=== PATIENT | male | born 1975 | race Caucasian/White ===

== ENCOUNTER 2020-09-08 21:47 | Outpatient (CLI) | payer OTHER, SELFPAY ==
--- NOTE | 2020-09-08 14:26 | DI.RAD_ITS ---
Exam(s) XR FOOT LT COMPLETE EXAM: XR FOOT LT COMPLETE CLINICAL HISTORY: LEFT FOOT PAIN M79.672 TYPE 2 DIABETES W POLYNEUROPATHY E11.42 TRANSMETATAR TECHNIQUE: COMPARISON: No exams were available for comparison FINDINGS: Three views were obtained. There is prior transmetatarsal amputation. No gross erosive or destructi ve process as visualized. IMPRESSION: RADIATION DOSE DELIVERED: Total DLP
== END 2020-09-08 22:07 ==
PROVIDERS: Visit Provider Podiatrist
DX: M79.672 Pain in left foot (principal); E11.42 Type 2 diabetes mellitus with diabetic polyneuropathy
CPT/HCPCS: 73630

== ENCOUNTER 2020-12-09 03:33 | Outpatient (CLI) | payer OTHER, SELFPAY ==
[2020-12-09 11:25] LABS: Hemoglobin A1C 10.4 % (<5.7)
[2020-12-09 11:49] LABS: ALT 54 U/L (16-63); AST 24 U/L (15-37); Albumin 3.9 g/dL (3.4-5.0); Alkaline Phosphatase 109 U/L (46-116); Anion Gap 5.4 mmol/L (3-11); BUN 12 mg/dL (7-18); Bilirubin, Total 0.7 mg/dL (0.2-1.0); CO2 29.6 mmol/L (21.0-32.0); Calcium 8.6 mg/dL (8.5-10.1); Chloride 102 mmol/L (98-107); Glucose 293 mg/dL (74-106); Potassium 3.9 mmol/L (3.5-5.1); Sodium 137 mmol/L (136-145); Total Protein 6.9 g/dL (6.4-8.2)
== END 2020-12-09 03:34 | disposition home or self-care (01) ==
LOC: LBO 03:33
PROVIDERS: PCP Nurse Practitioner Acute Care; Visit Provider Nurse Practitioner Acute Care
DX: E11.9 Type 2 diabetes mellitus without complications (principal)
CPT/HCPCS: 36415; 80053; 83036

== ENCOUNTER 2021-09-10 02:58 | Outpatient (CLI) | payer OTHER, SELFPAY ==
[2021-09-10 08:23] LABS: Hemoglobin A1C 6.6 % (<5.7)
[2021-09-10 09:20] LABS: Calculated LDL 55 mg/dL (<100); Cholesterol 121 mg/dL (<200); HDL Cholesterol 34 mg/dL (40-60); Triglyceride 160 mg/dL (<150)
== END 2021-09-10 02:59 | disposition home or self-care (01) ==
LOC: LBO 02:58
PROVIDERS: PCP Nurse Practitioner Acute Care; Visit Provider Nurse Practitioner Acute Care
DX: Z13.220 Encounter for screening for lipoid disorders (principal); E11.9 Type 2 diabetes mellitus without complications
CPT/HCPCS: 36415; 80061; 83036

== ENCOUNTER 2021-11-08 03:31 | Outpatient (CLI) | payer OTHER, SELFPAY ==
[2021-11-08 07:51] LABS: Hemoglobin A1C 5.8 % (<5.7)
[2021-11-08 08:30] LABS: ALT 51 U/L (16-63); AST 21 U/L (15-37); Albumin 3.9 g/dL (3.4-5.0); Alkaline Phosphatase 83 U/L (46-116); Anion Gap 7.6 mmol/L (3-11); BUN 17 mg/dL (7-18); Bilirubin, Total 0.5 mg/dL (0.2-1.0); CO2 31.4 mmol/L (21.0-32.0); CREATININE 1.2 mg/dL (0.70-1.30); Calcium 8.5 mg/dL (8.5-10.1); Chloride 104 mmol/L (98-107); Glucose 140 mg/dL (74-106); Potassium 4.1 mmol/L (3.5-5.1); Sodium 143 mmol/L (136-145); Total Protein 7.4 g/dL (6.4-8.2); Vitamin B12 387 pg/mL (193-986)
[2021-11-08 08:36] LABS: COMMENT (LAB VIEW ONLY) 210.42 mg/dL; Microalb ug/mg Crea 2.5 ug/mg Cr
[2021-11-09 17:06] LABS: Fructosamine 211 mcmol/L (200 - 285)
== END 2021-11-08 03:32 | disposition home or self-care (01) ==
LOC: LBO 03:31
PROVIDERS: PCP Nurse Practitioner Acute Care; Visit Provider Nurse Practitioner Acute Care
DX: E11.65 Type 2 diabetes mellitus with hyperglycemia
CPT/HCPCS: 36415; 80053; 82043; 82570; 82607; 82985; 83036

== ENCOUNTER 2021-12-17 01:10 | Outpatient (CLI) | payer OTHER, SELFPAY ==
[2021-12-17 08:56] LABS: Vitamin B12 432 pg/mL (193-986)
[2021-12-17 18:11] LABS: Albumin, Ur < 0.6 mg/dL (See Note); Creatinine, Ur 112.7 mg/dL (See Note)
[2021-12-18 15:55] LABS: Fructosamine 219 mcmol/L (200 - 285)
== END 2021-12-17 01:11 | disposition home or self-care (01) ==
LOC: LBO 01:10
PROVIDERS: PCP Nurse Practitioner Acute Care; Visit Provider Nurse Practitioner Acute Care
DX: E11.65 Type 2 diabetes mellitus with hyperglycemia (principal); R53.83 Other fatigue
CPT/HCPCS: 36415; 82043; 82570; 82607; 82985

== ENCOUNTER 2022-03-22 03:13 | Outpatient (CLI) | payer OTHER, SELFPAY ==
[2022-03-22 15:38] LABS: Hemoglobin A1C 5.8 % (<5.7)
[2022-03-22 15:48] LABS: Microalb ug/mg Crea 1.7 ug/mg Cr
[2022-03-22 16:22] LABS: Calculated LDL 45 mg/dL (<100); Cholesterol 120 mg/dL (<200); HDL Cholesterol 39 mg/dL (40-60); Triglyceride 182 mg/dL (<150); Vitamin B12 489 pg/mL (193-986)
== END 2022-03-22 03:14 | disposition home or self-care (01) ==
LOC: LBO 03:13
PROVIDERS: PCP Nurse Practitioner Acute Care; Visit Provider Nurse Practitioner Acute Care
DX: E11.9 Type 2 diabetes mellitus without complications (principal); R53.83 Other fatigue
CPT/HCPCS: 36415; 80061; 82043; 82570; 82607; 83036

== ENCOUNTER 2022-05-10 03:19 | Outpatient (CLI) | payer OTHER, SELFPAY ==
[2022-05-10 13:10] LABS: Hemoglobin A1C 5.2 % (<5.7)
[2022-05-10 13:56] LABS: COMMENT (LAB VIEW ONLY) 352.69 mg/dL; Microalb ug/mg Crea 4.7 ug/mg Cr
[2022-05-10 14:26] LABS: Calculated LDL 45 mg/dL (<100); Cholesterol 106 mg/dL (<200); HDL Cholesterol 38 mg/dL (40-60); Triglyceride 118 mg/dL (<150); Vitamin B12 450 pg/mL (193-986)
== END 2022-05-10 03:20 | disposition home or self-care (01) ==
LOC: LBO 03:19
PROVIDERS: PCP Nurse Practitioner Acute Care; Visit Provider Nurse Practitioner Acute Care
DX: E11.9 Type 2 diabetes mellitus without complications (principal); R53.83 Other fatigue
CPT/HCPCS: 36415; 80061; 82043; 82570; 82607; 83036

== ENCOUNTER 2022-07-08 08:39 | Emergency (ER) | payer OTHER, SELFPAY ==
[2022-07-08] VITALS (123 sets, daily range): BP systolic 113–126; BP diastolic 67–84; PULSE 78–91; RESP 9–28; TEMP 36.5; O2SAT 90–100
--- NOTE | 2022-07-08 08:30 | RT.EKG_ITS ---
APPROVED REPORT Exam: Resting ECG Reason for Exam: Dyspnea Patient Location: E HR:90 bpm ECG Measurements Heart Rate 90 AXIS PA 158 P -2 QRSd 85 QRS 12 QT 359 T 30 QTc 439 Conclusion Sinus rhythm...normal P axis, V-rate 60- 99
--- NOTE | 2022-07-08 09:00 | DI.RAD_ITS ---
Exam(s) XR CHEST 2V PA LATERAL EXAM: XR CHEST 2V PA LATERAL CLINICAL HISTORY: chest congestion, sob TECHNIQUE: 2D digital imaging was performed of the chest. Two images were obtained. PA and lateral views were obtained. COMPARISON: No exams were available for comparison FINDINGS: MEDIASTINUM: Normal. HEART: Normal. PULMONARY VASCULATURE: Normal. LUNGS: Clear. PLEURAL SPACE: No pleural effusion or pneumothorax. BONE:Within normal limits for the patient's age. OTHER FINDINGS:Normal. IMPRESSION: No acute pulmonary findings. DATA REPOSITORY: RADIATION DOSE DELIVERED:
[2022-07-08 09:13] LABS: Abs Immature Grans 0.04 10^3/uL (0.0-0.06); Absolute Basophil Count 0.03 10^3/uL (0.0-0.2); Absolute Lymphocyte Count 2.16 10^3/uL (1.2-3.4); Absolute Monocyte Count 0.54 10^3/uL (0.1-0.8); Basophils % 0.2; Eosinophils % 2.4; HCT 41.3 % (40.0-50.0); HGB 15.5 g/dL (13.5-17.5); Immature Grans % 0.3; Lymphocytes % 17.3; MCHC 37.5 % (32.0-36.0); MCV 85 fL (80-95); MPV 9.8 fL (8.0-11.0); Monocytes % 4.3; Neutrophils % 75.5; Platelet Count 197 10^3/uL (130-400); RBC 4.85 10^6/uL (4.36-5.78); RDW 14.4 % (11.8-14.1); RDW-SD 40.4 fL; WBC 12.51 10^3/uL (4.4-10.8)
[2022-07-08 09:15] LABS: Absolute Neutrophil Count 9.45 10^3/uL (1.2-6.7)
[2022-07-08] MEDS: Lactated Ringers 500 ML 1000 ML IV (09:15)
[2022-07-08 09:32] LABS: ALT 31 U/L (16-63); AST 15 U/L (15-37); Alkaline Phosphatase 94 U/L (46-116); Anion Gap 10.1 mmol/L (3-11); BUN 13 mg/dL (7-18); Bilirubin, Total 1.3 mg/dL (0.2-1.0); CO2 26.9 mmol/L (21.0-32.0); CREATININE 1.4 mg/dL (0.70-1.30); Calcium 9.3 mg/dL (8.5-10.1); Chloride 100 mmol/L (98-107); Estimated GFR 63.56 (mL/min/1.73m2); Glucose 142 mg/dL (74-106); Magnesium 2.2 mg/dL (1.8-2.4); Potassium 3.6 mmol/L (3.5-5.1); Sodium 137 mmol/L (136-145); Total Protein 8.5 g/dL (6.4-8.2)
[2022-07-08 09:35] LABS: Troponin I < 50 ng/L (<or=60)
[2022-07-08 09:59] LABS: COVID-19 PCR Negative (Negative); Influenza A PCR Negative (Negative); Influenza B PCR Negative (Negative); RSV PCR Negative (Negative)
[2022-07-08 10:00] LABS: Source Nasopharynx
[2022-07-08 10:21] LABS: D-Dimer 521 ng/mlFEU (<500)
[2022-07-08 10:34] LABS: NT-proBNP 17 pg/mL (<300); TSH (W/Ref FT4) 1.46 uIU/mL (0.36-3.74)
--- NOTE | 2022-07-08 10:54 | ED.GENADUL_ITS ---
Discharge Plan Disposition Patient Disposition: Home Condition: Stable Discharge Details Clinical Impression: Pneumonia, Elevated bilirubin Primary Care Provider: Pedro Luis Lawrence ED Provider: Lamin Max Home Meds and New Rx's Prescriptions: New doxycycline hyclate 100 mg tablet 100 mg PO BID Qty: 13 0RF amoxicillin-pot clavulanate 875-125 mg tablet 1 tab PO BID Qty: 13 0RF Continued omeprazole 20 mg capsule,delayed release(DR/EC) 20 mg PO DAILY lisinopril 10 mg tablet 10 mg PO DAILY metformin 500 mg tablet 500 mg PO BID Trulicity 0.75 mg/0.5 mL pen injector 0.75 mg subcut QWEEK gabapentin 300 mg capsule 300 mg PO TID simvastatin 20 mg tablet 20 mg PO DAILY buspirone 10 mg tablet 10 mg PO DAILY paroxetine HCl 40 mg tablet 40 mg PO DAILY Mounjaro 15 mg/0.5 mL pen injector 15 mg SUBCUT QWEEK Discharge Instructions Instructions: Pneumonia (ED) Additional Instructions: Please drink plenty of fluids to stay hydrated. Please take full course of antibiotic as prescribed. You were given initial dose here in the [facility]. Take another dose as prescribed late tonight. Please contact your primary care physician to arrange follow-up. Return to the ER immediately for any worsening or new concerning symptoms. Stand Alone Forms: Work Release Referrals: Pedro Luis Lawrence [Primary Care Provider] - Medical Decision Making 1154 -- 46-year-old male here with flulike illness over the past few days, generally weak with dyspnea on exertion and arthralgias today. No signs of focal bacterial infection on exam. Lungs clear to auscultation. Abdominal exam benign. Screening EKG was reviewed and interpreted by me: Please see report, nondiagnostic, sinus rhythm 90 bpm, normal axis. Troponin negative. I did consider CHF and BNP is negative. Initial labs reviewed: Bilirubin slightly elevated at 1.3. Leukocytosis of 12.5 noted. COVID and flu negative. D-dimer is elevated. Plan to proceed to CT of the chest to assess for acute pulmonary embolism. 1305 --CT of the chest was interpreted by radiology:1. No evidence of pulmonary embolism, thoracic aortic dissection or aneurysm.? 2. Bilateral basilar infiltrates suspicious for pneumonia. 3. Findings were discussed with Dr. Max on 07/08/2022 at 12:20 p.m.. Troponin negative. Patient reassessed and feeling better, nursing notes much improved after IV fluid. Plan to initiate antibiotic coverage with Augmentin and doxycycline. Plan for outpatient follow-up with PCP. Usual and customary discharge instructions reviewed with the patient Lab Data Lab results reviewed: Yes I reviewed the patient's lab results. Labs: Laboratory Tests Range/Units 07/08/22 07/08/22 07/08/22 08:55 08:55 08:55 WBC (4.4-10.8) 10^3/uL 12.51 H RBC (4.36-5.78) 10^6/uL 4.85 Hgb (13.5-17.5) g/dL 15.5 Hct (40.0-50.0) % 41.3 MCV (80-95) fL 85 MCH (27.0-33.0) pg 32.0 MCHC (32.0-36.0) % 37.5 H RDW (11.8-14.1) % 14.4 H Plt Count (130-400) 10^3/uL 197 MPV (8.0-11.0) fL 9.8 Immature Gran % 0.3 Neutrophils % 75.5 Lymphocytes % 17.3 Monocytes % 4.3 Eosinophils % 2.4 Basophils % 0.2 Nucleated RBC % (0.0-0.3) % 0.0 Absolute Neutrophils (1.2-6.7) 10^3/uL 9.45 H Absolute Lymphocytes (1.2-3.4) 10^3/uL 2.16 Absolute Monocytes (0.1-0.8) 10^3/uL 0.54 Absolute Eosinophils (0.0-0.7) 10^3/uL 0.30 Absolute Basophils (0.0-0.2) 10^3/uL 0.03 D-Dimer (<500) ng/mlFEU Sodium (136-145) mmol/L 137 Potassium (3.5-5.1) mmol/L 3.6 Chloride (98-107) mmol/L 100 Carbon Dioxide (21.0-32.0) mmol/L 26.9 Anion Gap (3-11) mmol/L 10.1 BUN (7-18) mg/dL 13 Creatinine (0.70-1.30) mg/dL 1.4 H Est GFR (CKD-EPI 2021) (mL/min/1.73m2) 63.56 Glucose (74-106) mg/dL 142 H Calcium (8.5-10.1) mg/dL 9.3 Magnesium (1.8-2.4) mg/dL 2.2 Total Bilirubin (0.2-1.0) mg/dL 1.3 H AST (15-37) U/L 15 ALT (16-63) U/L 31 Alkaline Phosphatase (46-116) U/L 94 Troponin I (<or=60) ng/L < 50 NT-Pro-B Natriuret Pep (<300) pg/mL 17 Total Protein (6.4-8.2) g/dL 8.5 H Albumin (3.4-5.0) g/dL 4.0 TSH (0.36-3.74) uIU/mL 1.46 COVID-19 Source SARS-CoV-2 (PCR) (Negative) Influenza Type A (PCR) (Negative) Influenza Type B (PCR) (Negative) RSV (PCR) (Negative) Range/Units 07/08/22 07/08/22 07/08/22 08:55 09:06 12:24 WBC (4.4-10.8) 10^3/uL RBC (4.36-5.78) 10^6/uL Hgb (13.5-17.5) g/dL Hct (40.0-50.0) % MCV (80-95) fL MCH (27.0-33.0) pg MCHC (32.0-36.0) % RDW (11.8-14.1) % Plt Count (130-400) 10^3/uL MPV (8.0-11.0) fL Immature Gran % Neutrophils % Lymphocytes % Monocytes % Eosinophils % Basophils % Nucleated RBC % (0.0-0.3) % Absolute Neutrophils (1.2-6.7) 10^3/uL Absolute Lymphocytes (1.2-3.4) 10^3/uL Absolute Monocytes (0.1-0.8) 10^3/uL Absolute Eosinophils (0.0-0.7) 10^3/uL Absolute Basophils (0.0-0.2) 10^3/uL D-Dimer (<500) ng/mlFEU 521 H Sodium (136-145) mmol/L Potassium (3.5-5.1) mmol/L Chloride (98-107) mmol/L Carbon Dioxide (21.0-32.0) mmol/L Anion Gap (3-11) mmol/L BUN (7-18) mg/dL Creatinine (0.70-1.30) mg/dL Est GFR (CKD-EPI 2020) (mL/min/1.73m2) Glucose (74-106) mg/dL Calcium (8.5-10.1) mg/dL Magnesium (1.8-2.4) mg/dL Total Bilirubin (0.2-1.0) mg/dL AST (15-37) U/L ALT (16-63) U/L Alkaline Phosphatase (46-116) U/L Troponin I (<or=60) ng/L < 50 NT-Pro-B Natriuret Pep (<300) pg/mL Total Protein (6.4-8.2) g/dL Albumin (3.4-5.0) g/dL TSH (0.36-3.74) uIU/mL COVID-19 Source Nasopharynx SARS-CoV-2 (PCR) (Negative) Negative Influenza Type A (PCR) (Negative) Negative Influenza Type B (PCR) (Negative) Negative RSV (PCR) (Negative) Negative HPI General Mode of arrival: ambulatory . Date/Time Provider Initiated Documentation: 07/08/22 09:01 . Limitations to Documentation: no limitations . Information obtained by: patient . HPI Narrative: 46-year-old male with history of diabetes, presents with chief complaint of generally not feeling well. Patient notes he has been having flulike illness for the past 2 to 3 days. He notes he feels rundown. He has had mild interm ittent cough. Patient notes dyspnea on exertion today and arthralgias. No fever. No known tick bites. Patient has performed home COVID testing has been negative this week. Related Data Home Medications Medication Instructions Recorded Confirmed dulaglutide 0.75 mg/0.5 mL 0.75 mg subcut QWEEK 02/25/22 05/10/22 [facility] gabapentin 300 mg capsule 300 mg PO TID 02/25/22 07/08/22 lisinopril 10 mg tablet 10 mg PO DAILY 02/25/22 07/08/22 metformin 500 mg tablet 500 mg PO BID 02/25/22 07/08/22 omeprazole 20 mg capsule,delayed 20 mg PO DAILY 02/25/22 07/08/22 release simvastatin 20 mg tablet 20 mg PO DAILY 02/25/22 07/08/22 amoxicillin 875 mg-potassium 1 tab PO BID #13 tabs 07/08/22 clavulanate 125 mg tablet buspirone 10 mg tablet 10 mg PO DAILY 07/08/22 07/08/22 doxycycline hyclate 100 mg tablet 100 mg PO BID #13 tabs 07/08/22 paroxetine HCl 40 mg tablet 40 mg PO DAILY 07/08/22 07/08/22 tirzepatide 15 mg/0.5 mL 15 mg subcut QWEEK 07/08/22 07/08/22 subcutaneous pen injector (Dania) Previous Rx's Medication Instructions Recorded amoxicillin 875 mg-potassium 1 tab PO BID #13 tabs 07/08/22 clavulanate 125 mg tablet doxycycline hyclate 100 mg tablet 100 mg PO BID #13 tabs 07/08/22 Allergies Allergy/AdvReac Type Severity Reaction Status Date / Time latex Allergy Unknown Verified 07/08/22 08:44 anesthesia Allergy Unknown Uncoded 07/08/22 08:44 General Stated Complaint: RespSymp KAROL: 3 Review of Systems Constitutional Constitutional: Reports as per HPI, Reports body ache(s), Reports fatigue and Reports weakness Cardiovascular Cardiovascular: Denies chest pain Respiratory Respiratory: Reports as per HPI Neurologic Neurologic: Reports weakness Endocrine Endocrine: Reports fatigue PFSH All Active Problems (Updated 07/08/22 @ 13:11 by Lamin Max MD) Pneumonia (Acute) Elevated bilirubin (Acute) Nail dystrophy (Acute) Diabetes (Chronic) History of amputation of toe (Acute) Transmetatarsal amputation; 2019 Corns and callosities (Acute) Medical History Fracture of arm ORIF Pneumonia Surgical History History of Achilles tendon repair Social History Smoking/Tobacco Use Status: Never Smoking risk assessment performed?: Yes Substance use type: does not use Current gender identity: male Do you feel safe at home: Yes Do you feel safe in your relationship?: Yes Exam Const General: cooperative and no acute distress HENMT Mouth: mucous membranes dry Eyes Conjunctivae: normal conjunctivae Sclera: normal sclerae Neck Neck: trachea midline and supple Resp Auscultation: clear to auscultation bilaterally, no rales, no rhonchi and no wheezes GI Palpation: soft, not firm, no guarding, no masses, not rigid and nontender Skin General skin exam: no rashes or lesions noted Neuro General: patient alert, patient awake and tone normal Cognition: normal cognition Extrem General: no calf tenderness and no edema Psych Appearance: grossly normal Mental Status: mental status grossly normal Course Vital Signs Vital signs: Vital Signs Temperature 36.5 C 07/08/22 08:45 Pulse 79 07/08/22 08:45 Respiratory Rate 18 07/08/22 08:45 Blood Pressure 123/84 07/08/22 08:45 Pulse Oximetry 94 07/08/22 08:45 Temperature 36.5 C 07/08/22 08:45 Temperature Source Tympanic 07/08/22 08:45 Pulse 79 07/08/22 08:45 Respiratory Rate 18 07/08/22 08:45 Respiratory Effort Normal, Non-Labored 07/08/22 08:58 Respiratory Depth Normal 07/08/22 08:58 Blood Pressure 123/84 07/08/22 08:45 Pulse Oximetry 94 07/08/22 08:45 Oxygen Delivery Method Room Air 07/08/22 08:45 Oxygen Flow Rate 0 07/08/22 08:45 Lab/Test Results Lab/Test Results: Laboratory Tests Range/Units 07/08/22 07/08/22 07/08/22 08:55 08:55 08:55 WBC (4.4-10.8) 10^3/uL 12.51 H RBC (4.36-5.78) 10^6/uL 4.85 Hgb (13.5-17.5) g/dL 15.5 Hct (40.0-50.0) % 41.3 MCV (80-95) fL 85 MCH (27.0-33.0) pg 32.0 MCHC (32.0-36.0) % 37.5 H RDW (11.8-14.1) % 14.4 H Plt Count (130-400) 10^3/uL 197 MPV (8.0-11.0) fL 9.8 Immature Gran % 0.3 Neutrophils % 75.5 Lymphocytes % 17.3 Monocytes % 4.3 Eosinophils % 2.4 Basophils % 0.2 Nucleated RBC % (0.0-0.3) % 0.0 Absolute Neutrophils (1.2-6.7) 10^3/uL 9.45 H Absolute Lymphocytes (1.2-3.4) 10^3/uL 2.16 Absolute Monocytes (0.1-0.8) 10^3/uL 0.54 Absolute Eosinophils (0.0-0.7) 10^3/uL 0.30 Absolute Basophils (0.0-0.2) 10^3/uL 0.03 D-Dimer (<500) ng/mlFEU Sodium (136-145) mmol/L 137 Potassium (3.5-5.1) mmol/L 3.6 Chloride (98-107) mmol/L 100 Carbon Dioxide (21.0-32.0) mmol/L 26.9 Anion Gap (3-11) mmol/L 10.1 BUN (7-18) mg/dL 13 Creatinine (0.70-1.30) mg/dL 1.4 H Est GFR (CKD-EPI 2020) (mL/min/1.73m2) 63.56 Glucose (74-106) mg/dL 142 H Calcium (8.5-10.1) mg/dL 9.3 Magnesium (1.8-2.4) mg/dL 2.2 Total Bilirubin (0.2-1.0) mg/dL 1.3 H AST (15-37) U/L 15 ALT (16-63) U/L 31 Alkaline Phosphatase (46-116) U/L 94 Troponin I (<or=60) ng/L < 50 NT-Pro-B Natriuret Pep (<300) pg/mL 17 Total Protein (6.4-8.2) g/dL 8.5 H Albumin (3.4-5.0) g/dL 4.0 TSH (0.36-3.74) uIU/mL 1.46 COVID-19 Source SARS-CoV-2 (PCR) (Negative) Influenza Type A (PCR) (Negative) Influenza Type B (PCR) (Negative) RSV (PCR) (Negative) Range/Units 07/08/22 07/08/22 08:55 09:06 WBC (4.4-10.8) 10^3/uL RBC (4.36-5.78) 10^6/uL Hgb (13.5-17.5) g/dL Hct (40.0-50.0) % MCV (80-95) fL MCH (27.0-33.0) pg MCHC (32.0-36.0) % RDW (11.8-14.1) % Plt Count (130-400) 10^3/uL MPV (8.0-11.0) fL Immature Gran % Neutrophils % Lymphocytes % Monocytes % Eosinophils % Basophils % Nucleated RBC % (0.0-0.3) % Absolute Neutrophils (1.2-6.7) 10^3/uL Absolute Lymphocytes (1.2-3.4) 10^3/uL Absolute Monocytes (0.1-0.8) 10^3/uL Absolute Eosinophils (0.0-0.7) 10^3/uL Absolute Basophils (0.0-0.2) 10^3/uL D-Dimer (<500) ng/mlFEU 521 H Sodium (136-145) mmol/L Potassium (3.5-5.1) mmol/L Chloride (98-107) mmol/L Carbon Dioxide (21.0-32.0) mmol/L Anion Gap (3-11) mmol/L BUN (7-18) mg/dL Creatinine (0.70-1.30) mg/dL Est GFR (CKD-EPI 2020) (mL/min/1.73m2) Glucose (74-106) mg/dL Calcium (8.5-10.1) mg/dL Magnesium (1.8-2.4) mg/dL Total Bilirubin (0.2-1.0) mg/dL AST (15-37) U/L ALT (16-63) U/L Alkaline Phosphatase (46-116) U/L Troponin I (<or=60) ng/L NT-Pro-B Natriuret Pep (<300) pg/mL Total Protein (6.4-8.2) g/dL Albumin (3.4-5.0) g/dL TSH (0.36-3.74) uIU/mL COVID-19 Source Nasopharynx SARS-CoV-2 (PCR) (Negative) Negative Influenza Type A (PCR) (Negative) Negative Influenza Type B (PCR) (Negative) Negative RSV (PCR) (Negative) Negative PAWSS Have you Been Recently Intoxicated or Drunk Within the Last 30 days?: No Have you Ever Experienced Previous Episodes of Alcohol Withdrawal?: No Have you ever Experienced Withdrawal Seizures?: No Have you ever Experienced Delirium Tremens(DT)s?: No Have you ever undergone Alcohol Rehabilitation Treatment (i.e, inpt ot outpatient treatment programs)?: No Have you ever Experienced Blackouts?: No Have you ever Combined Alcohol with other Downers within the last 90 days?: No Have you ever Combined Alcohol with any other Substance of Abuse during the last 90 days?: No Positive Blood Alcohol level on Presentation? [PCS.BAL]: No Evidence of Increased Autonomic Activity (i.e. HR>120, tremor, sweating, agitation, nausea)?: No Result: 0
[2022-07-08] MEDS: Normal Saline - Diluent 50 ML VIAL IJ (12:01)
[2022-07-08] MEDS: Omnipaque 350 MG/ML 500 ML BTL-Imaging package 100 ML IJ (12:04)
--- NOTE | 2022-07-08 12:07 | DI.CT_ITS ---
Exam(s) CT CHEST PE CTA EXAM: CT CHEST PE CTA CLINICAL HISTORY: weakness, sob, elev ddimer. TECHNIQUE: Imaging Protocol: Axial CT angiography was performed with multi-slice acquisition and mu lti-planar and/or 3D reconstructions. CONTRAST MATERIAL: Intravenous: Omnipaque 350 contrast volume:100 mL COMPARISON: CR XR CHEST 2V PA LATERAL from 07/08/2022 FINDINGS: Tracheobronchial tree: Patent where visualized. Pulmonary parenchyma: There are ground-glass infiltrate seen in the lower lobes and the right middle lobe. There is a focal area of consolidation in the left lower lobe. No architectural distortion. Pulmonary Arteries: No evidence of filling defect to suggest pulmonary emboli. Mediastinum and Patricia: No dominant adenopathy or fluid collection. The esophagus is unremarkable. Visualized thyroid gland: Unremarkable. Pleura: No effusion or pneumothorax. Heart: The heart is not dilated. No coronary artery calcifications are seen. No pericardial effusion. RV to LV ratio is less than 1. Aorta: Thoracic aorta non-dilated. No evidence of dissection. Mild atherosclerosis. Upper abdomen: Unremarkable. Soft tissues: Unremarkable. Bones: Within normal limits for the patient's age. IMPRESSION: 1. No evidence of pulmonary embolism, thoracic aortic dissection or aneurysm. 2. Bilateral basilar infiltrates suspicious for pneumonia. 3. Findings were discussed with Dr. Max on 07/08/2022 at 12:20 p.m.. RADIATION DOSE DELIVERED: 673.52mGy.cm Total DLP DATA REPOSITORY: All CT scans at this facility are submitted to the National Radiology Data Registry (NRDR) Dose Index Registry (DIR) with the [employer] ([employer]). RADIATION OPTIMIZATION: All CT scans at this facility use at least one of these dose optimization te chniques: automated exposure control; mA and/or kV adjustment per patient size (includes targeted exa ms where dose is matched to clinical indication); or iterative reconstruction.
[2022-07-08] MEDS: diphenhydrAMINE 50 MG/ML VIAL IVP (12:08)
[2022-07-08 12:51] LABS: Troponin I < 50 ng/L (<or=60)
--- NOTE | 2022-07-08 13:19 | NUR.NOTE ---
Nursing Note: PT needing follow up early next week with PCP for pneumonia. Carlene, ED
== END 2022-07-08 13:30 | disposition home or self-care (01) ==
PROVIDERS: Emergency Provider Student in an Organized Health Care Education/Training Program; PCP Nurse Practitioner Acute Care
DX: J18.9 Pneumonia, unspecified organism (principal); E80.7 Disorder of bilirubin metabolism, unspecified; D72.829 Elevated white blood cell count, unspecified; R79.1 Abnormal coagulation profile; E11.9 Type 2 diabetes mellitus without complications; Z20.822 Contact with and (suspected) exposure to COVID-19
CPT/HCPCS: 36415; 71275; 80053; 87637; 93005; 96361; 96374; 99285; 71046; 83735; 83880; 84443; 84484; 85025; 85379; 93010; 99284; J1200

== ENCOUNTER 2022-09-05 03:10 | Outpatient (CLI) | payer OTHER, SELFPAY ==
[2022-09-05 08:18] LABS: ALT 35 U/L (16-63); AST 18 U/L (15-37); Albumin 3.9 g/dL (3.4-5.0); Alkaline Phosphatase 81 U/L (46-116); Anion Gap 7.2 mmol/L (3-11); BUN 14 mg/dL (7-18); CO2 28.8 mmol/L (21.0-32.0); CREATININE 1.2 mg/dL (0.70-1.30); Calcium 8.9 mg/dL (8.5-10.1); Chloride 102 mmol/L (98-107); Estimated GFR 76.48 (mL/min/1.73m2); Glucose 135 mg/dL (74-106); Potassium 3.7 mmol/L (3.5-5.1); Sodium 138 mmol/L (136-145); Total Protein 7.6 g/dL (6.4-8.2)
[2022-09-05 09:07] LABS: Hemoglobin A1C 4.8 % (<5.7)
== END 2022-09-05 03:11 | disposition home or self-care (01) ==
LOC: LBO 03:10
PROVIDERS: PCP Nurse Practitioner Acute Care; Visit Provider Nurse Practitioner Acute Care
DX: E11.9 Type 2 diabetes mellitus without complications (principal)
CPT/HCPCS: 36415; 80053; 83036